=== PATIENT | male | born 1935 | race Caucasian/White ===

== ENCOUNTER 2017-02-01 02:24 | Inpatient (IN) ==
--- NOTE | 2017-01-31 09:56 | EKG Report ---
Test Performed on : 01/31/2017 09:06:31 AM Test Reason : surgery Blood Pressure : / mmHG Vent. Rate : 056 BPM Atrial Rate : 056 BPM P-R Int : 162 ms QRS Dur : 090 ms QT Int : 376 ms P-R-T Axes : 029 -41 050 degrees QTc Int : 362 ms Sinus bradycardia. Left axis deviation Low voltage QRS Abnormal ECG No previous ECGs available Confirmed by Aurora Shin MD ([id number]) on 02/01/2017 6:03:25 AM
[2017-01-31 10:24] LABS: BASO% 0.2 % (0.0-0.8); EOS# 0.14 X1000 (0.0-0.7); EOS% 2.6 % (0.0-10.0); HEMATOCRIT 34.1 % (42.0-52.0); HEMOGLOBIN 11.3 g/dL (14.0-18.0); IMM GRAN# 0.02 X1000 (0.0-0.04); IMM GRAN% 0.4 % (0.0-0.5); LYMPH# 1.16 X1000 (1.2-3.4); LYMPH% 21.3 % (20.5-51.1); MANUAL DIFF NEEDED? NO; MCH 28.7 PG (27-31); MCHC 33.1 g/dL (33-37); MCV 86.5 FL (81-99); MONO# 0.65 X1000 (0.11-0.59); MONO% 11.9 % (1.7-9.3); MPV 9.2 FL (7.4-10.4); NEUT% 63.6 % (42.2-75.2); PLT 247 X1000 (130-400); RBC 3.94 XMIL (4.7-6.1)
[2017-01-31 10:26] LABS: BILIRUBIN URINE NEGATIVE (NEGATIVE); BLOOD URINE NEGATIVE (NEGATIVE); COLOR YELLOW; GLUCOSE URINE 70 mg/dL (NEGATIVE); LEUKOCYTES URINE NEGATIVE (NEGATIVE); NITRITE URINE NEGATIVE (NEGATIVE); PH URINE 5.5; PROTEIN URINE NEGATIVE (NEGATIVE); SP GRAVITY URINE 1.008; TURBIDITY URINE CLEAR (CLEAR); URINE MICRO REVIEW NEEDED? NO; URINE SOURCE CLEAN CATCH; UROBILINOGEN URINE NORMAL (NORMAL)
[2017-01-31 10:27] LABS: UR EPITHELIAL CELLS <10 /HPF (<10); URINE BACTERIA NEGATIVE /HPF; URINE RBC <10 /HPF (<10); URINE WBC <10 /HPF (<10)
[2017-01-31 11:09] LABS: CALCIUM 10.2 mg/dL (8.8-10.2); POTASSIUM 5.4 mmol/L (3.5-5.1)
[2017-01-31 21:52] LABS: INR 0.97; PROTIME 10.2 Seconds (9.2-11.7); PTT 29.2 Seconds (22.0-36.0)
[2017-02-01] MEDS ORDERED: MORPHINE IV PRN (06:53)
[2017-02-01] MEDS ORDERED: PEPCID ONE (08:22)
[2017-02-01] MEDS ORDERED: COLACE ONE (08:22)
[2017-02-01] MEDS ORDERED: LYRICA ONE (08:22)
[2017-02-01] MEDS ORDERED: REGLAN ONE (08:22)
[2017-02-01] MEDS ORDERED: CELEBREX ONE (08:22)
[2017-02-01] MEDS ORDERED: KEFZOL 1 GM/D5W 1 GM/50 ML IVPB ONE (08:22)
[2017-02-01] MEDS ORDERED: LR 1,000 ML ONE (08:23)
[2017-02-01] MEDS ORDERED: DIPRIVAN 1% ONE (09:58)
[2017-02-01] MEDS ORDERED: ROBINUL ONE ×2 (10:00→11:03)
[2017-02-01] MEDS ORDERED: XYLOCAINE-MPF 2% ONE (10:00)
[2017-02-01] MEDS ORDERED: QUELICIN (DOSE) ONE (10:00)
[2017-02-01] MEDS ORDERED: TORADOL ONE (10:03)
[2017-02-01] MEDS ORDERED: DURAMORPH ONE (10:03)
[2017-02-01] MEDS ORDERED: MARCAINE 0.25% PF/EPI 1:200,000 ONE (10:04)
[2017-02-01] MEDS ORDERED: SODIUM CHLORIDE 0.9% ONE (10:04)
[2017-02-01] MEDS ORDERED: CYKLOKAPRON 1,000 MG/NS 1,000 MG/100 ML IVPB ONE (10:04)
[2017-02-01] MEDS ORDERED: EXPAREL 1.3% ONE (10:05)
[2017-02-01] MEDS ORDERED: NEOSPORIN G.U. IRRIGANT ONE (10:05)
[2017-02-01] MEDS ORDERED: FENTANYL ONE (10:56)
[2017-02-01] MEDS ORDERED: OFIRMEV 1000 MG/ISOTONIC SOLN 1,000 MG/100 ML BOTTLE ONE (11:03)
[2017-02-01] MEDS ORDERED: ZOFRAN ONE (11:03)
[2017-02-01] MEDS ORDERED: NEOSTIGMINE ONE (11:03)
[2017-02-01] MEDS ORDERED: EPHEDRINE ONE (11:22)
[2017-02-01 11:31] LABS: URINE MICRO REVIEW NEEDED? NO; URINE SOURCE CATH
[2017-02-01 11:34] LABS: BILIRUBIN URINE NEGATIVE (NEGATIVE); BLOOD URINE TRACE (NEGATIVE); COLOR YELLOW; GLUCOSE URINE TRACE mg/dL (NEGATIVE); LEUKOCYTES URINE NEGATIVE (NEGATIVE); NITRITE URINE NEGATIVE (NEGATIVE); PH URINE 6.5; PROTEIN URINE NEGATIVE (NEGATIVE); TURBIDITY URINE CLEAR (CLEAR); UR EPITHELIAL CELLS <10 /HPF (<10); URINE BACTERIA NEGATIVE /HPF; URINE WBC <10 /HPF (<10); UROBILINOGEN URINE NORMAL (NORMAL)
[2017-02-01] MEDS ORDERED: SODIUM CHLORIDE 0.9% 10 ML ONE (12:20)
[2017-02-01] MEDS ORDERED: NEO-SYNEPHRINE ONE (12:20)
[2017-02-01] MEDS ORDERED: MORPHINE ONE (12:58)
[2017-02-01] MEDS ORDERED: NS 1,000 ML ONE (12:58)
[2017-02-01] MEDS: MORPHINE ONE (13:12)
[2017-02-01] MEDS: NS 1,000 ML IV SCH (13:40)
--- NOTE | 2017-02-01 13:48 | OPERATIVE NOTE ---
PROCEDURE DATE: 02/01/2017 PREOPERATIVE DIAGNOSIS: Degenerative joint disease, right hip. POSTOPERATIVE DIAGNOSIS: Degenerative joint disease, right hip. PROCEDURE PERFORMED: Right total hip replacement anterior approach. SURGEON: Alice Anderson MD. PC ANALYST: Nick Duran. ANESTHESIA: General. COMPLICATION: None. PROCEDURE IN DETAIL: 81-year-old male presents for right total hip replacement. Risks, benefits, and no guarantees were discussed, and he is willing to proceed. He was taken to the operating room and satisfactory anesthesia obtained. He was transferred to the Latanya table and the right hip prepped and draped in usual sterile fashion. A time-out was taken confirm operative site, procedure, and patient. The right hip was approached anteriorly with a 10 cm incision starting 1 cm distal and lateral to the anterior superior iliac spine. Dissection was carried down through the skin and the fascia of the tensor fascia margo split in line with the incision. Blunt dissection along the inner membrane of tensor fascia was undertaken on down to the anterior hip capsule. The Cobra retractor was placed over the superior and inferior neck of the femoral neck in the capsule incised. The femoral neck was exposed and a femoral neck osteotomy made roughly 10 mm above the lesser trochanter. The femoral head was removed and sequential reaming of the acetabulum undertaken up to a size 55 reamer. A [place] DuoFix COPELAND coated acetabular shell, size 56 outer diameter was then impacted in the acetabulum under fluoroscopic guidance in roughly 45 degrees of abduction and 10-15 degrees of anteversion. This was noted to have good press-fit fixation. An additional 25 length screw was placed in the cup and a 36 inner diameter 0 degree polyethylene liner impacted in the cup. Liner cup and cup bone interface were checked and noted to be stable. The Latanya table was used to extend the hip and externally rotate the hip to facilitate broaching of the proximal femur. Sequential broaching of the femur was undertaken up to a size 15 Corail stem. This had good axial and rotational stability. An 8.5 neck length with the stem produced good mandaeism of leg length under fluoroscopic guidance making up for mild shortening of the hip. Good stability was noted. The trial stem was removed and a standard neck size 15 Corail stem impacted in the proximal femur with secure fixation. A 36 outer diameter ceramic 8.5 neck length head was impacted on this and the hip reduced. The C-arm was used to verify accurate component position and fixation. Good mandaeism of leg length was achieved. No anterior instability of the hip was noted through 75 degrees of extension and roughly 60-70 degrees of external rotation without any instability. The wound was copiously irrigated with irrigant. It was injected with Exparel for pain management and a Hemovac drain placed. The wound was closed over the drain with a running #1 Vicryl in the tensor fascia, 2-0 Vicryl in the subcutaneous, and skin schuyler on the skin edges. Sterile dressings completed the closure and the patient was recovered from anesthesia and transferred to the recovery room in stable condition. No intraoperative complications were noted. Instrument count and sponge count was correct at the time of closure. cc: Dylan Anderson MD
[2017-02-01] MEDS ORDERED: PNEUMOVAX 23 IM ONE (14:15)
--- NOTE | 2017-02-01 16:37 | PROGRESS NOTE ---
DATE: 02/01/2017 Mr. Dubon seen today status post total hip replacement. Presently, he has no complaints. He is afebrile with stable vital signs. The incision and bandage are clean and dry. He is motor and sensory intact. At the present time, he is stable. cc: Dylan Anderson MD
[2017-02-01] MEDS: NORCO-10 PO PRN ×2 (16:46→21:37)
[2017-02-01] MEDS: GLUCOPHAGE PO SCH (16:50)
[2017-02-01] MEDS: CELEBREX PO SCH (16:53)
[2017-02-01] MEDS: GLUCOTROL XL PO SCH ×2 (16:54→21:38)
[2017-02-01] MEDS: PRINIVIL PO SCH (16:54)
[2017-02-01] MEDS: COLACE PO SCH ×2 (16:54→21:38)
[2017-02-01] MEDS: KEFZOL 1 GM/D5W 1 GM/50 ML IVPB IV SCH (17:00)
[2017-02-01] MEDS ORDERED: HUMULIN R SUBQ ONE (19:02)
[2017-02-01] MEDS: ZOCOR PO SCH (21:37)
[2017-02-01] MEDS: PERIDEX MT SCH (21:38)
[2017-02-01] MEDS: HUMULIN R SUBQ SCH (21:38)
[2017-02-01] MEDS ORDERED: HALL'S COUGH LOZENGE MT PRN (23:07)
[2017-02-02] MEDS: KEFZOL 1 GM/D5W 1 GM/50 ML IVPB IV SCH (02:46)
[2017-02-02] MEDS: NS 1,000 ML IV SCH ×2 (02:47→17:19)
[2017-02-02 06:03] LABS: HEMATOCRIT 21.5 % (42.0-52.0); HEMOGLOBIN 7.2 g/dL (14.0-18.0)
--- NOTE | 2017-02-02 06:04 | CONSULTATION ---
DATE OF CONSULTATION: 02/02/2017 PRIMARY CARE PROVIDER: Dr. Dobson. DATE AND TIME OF CONSULTATION: On 02/02/2017 at 0200. REASON FOR CONSULTATION: Assistance with medical management. HISTORY OF PRESENT ILLNESS: Mr. Dubon is an 81-year-old, male who was admitted to the hospital yesterday and underwent surgery yesterday morning with Dr. Anderson for a right total hip replacement secondary to degenerative joint disease of his right hip. Initially , the patient was having controlled fingerstick blood sugars, though since surgery, his blood glucose levels have been elevated with the highest being 422. Dr. Anderson was notified of this and he did consult us for assistance with management in controlling his blood glucose levels. The patient, at this time, is resting comfortably in the bed. His pain is controlled. He, as well as his family member at bedside, report that he got up a few hours after surgery today and did ambulate with a walker. The patient did tolerate this well. He denies any other symptoms at this time. He denies any dizziness, lightheadedness, headache, chest pain, shortness of breath , or cough, He denies any abdominal pain, nausea, vomiting, or diarrhea. He reports that his last bowel movement was just prior to his arrival to the hospital. He denies any hematochezia or melena. He denies any dysuria or urinary frequency. He also denies any fever, body aches, or chills. Other than his reported pain in his right hip, he denies any other pain, numbness, tingling , or swelling in extremities. REVIEW OF SYSTEMS: A 12 point review of systems was conducted with the patient. All were negative except for pertinent positives mentioned above in the HPI. PAST MEDICAL HISTORY: 1. Diabetes mellitus type 2. 2. Hypertension. 3. History of a vascular stent placement. The patient reports that he has had a right carotid stent as well as a stent placed in his right leg. 4. Insomnia. 5. Gastroesophageal reflux disease. 6. Anxiety. 7. Previous history of gastrointestinal bleeding. 8. There is a questionable history of possible chronic kidney disease. 9. Arthritis. PAST SURGICAL HISTORY: 1. Left inguinal hernia repair. 2. Placement of right carotid stent as well as a stent in his right leg. 3. He has had a right knee arthroscopy. 4. He is status postop a right total hip replacement. SOCIAL HISTORY: The patient is a former smoker. He smoked for approximately 30 years. During this time, he initially did smoke cigarettes, though converted to cigars and eventually a pipe, though quit smoking in 2000. He denies any alcohol or illicit drug use. He currently lives at home with his . FAMILY HISTORY: Positive for his mother having a history of diabetes mellitus. He reported that he did not know of his father having any medical problems, though he does have 12 brothers and sisters for which some of them have problems with diabetes as well. ALLERGIES: Patient reports an allergy to Plavix, stating that it had caused him to have diarrhea. HOME MEDICATIONS: 1. Aspirin 81 mg p.o. daily. 2. Glipizide 10 mg p.o. b.i.d. 3. Lisinopril 20 mg p.o. daily. 4. Metformin 500 mg p.o. b.i.d. 5. Simvastatin 20 mg p.o. at bedtime. DIAGNOSTIC DATA/LABORATORY RESULTS: White blood cell count 5.4, hemoglobin 11.3 , hematocrit 34.1, platelet count is 247,000. PT 10.2, INR 0.97, PTT 29.2. Sodium 137, potassium 5.4, chloride 100, bicarb 26, BUN 26, creatinine 1.5, with a GFR of 45, glucose 109, calcium is 10.2. Urinalysis did show trace ketones, trace blood, and 10-20 red blood cells. It was negative for nitrites, leukocytes, white blood cells, or bacteria. EKG performed on January 31 showed sinus bradycardia with a left axis deviation at a rate of 56 with a QTc of 362. PHYSICAL EXAMINATION: Vital Signs: Temperature 98.6 degrees, heart rate 60, respirations 18, blood pressure 112/50, oxygen saturation is 98% on room air. General: Mr. Dubon is a very pleasant, 81-year-old, male who was resting comfortably in the inpatient bed. He was in no acute distress. He was awake, alert, and able to answer all questions appropriately. HEENT: Head is atraumatic, normocephalic. Pupils are equal, round, reactive to light, were 3 mm bilaterally and brisk. Oral mucosa is moist. Oropharynx is clear. Neck: Supple. Trachea midline. The patient did have a right carotid bruit noted upon auscultation, though he does have a history of a stent placement on the right. Cardiovascular: Patient has normal S1, S2. No murmurs, gallops, or rubs appreciated, with a regular rate and rhythm. Pulmonary: Patient has symmetrical chest expansion bilaterally. Lung sounds are clear to auscultation in bilateral full lung lu. Abdomen: Soft, nontender, nondistended. Bowel sounds are present in all 4 quadrants, normoactive. Extremities: No cyanosis, clubbing, or edema noted. Pulse, motor, and sensory are intact in all extremities. Neurological: The patient is alert and oriented x4. Cranial nerves 2-12 are grossly intact. ASSESSMENT AND PLAN: 1. Status post right total hip replacement secondary to degenerative joint disease. We will refer to Dr. Anderson for management of this. 2. Diabetes mellitus type 2. At this time, we have also, in addition to his home medications, placed him on a sliding scale insulin. We will closely monitor his fingerstick blood sugars. After surgery, his fingerstick blood sugar did get to as high as 422. After receiving his dose of insulin at 2100, his most recent glucose check was 147. We will continue to monitor. 3. Hypertension. We will continue his lisinopril. 4. Hyperlipidemia. We will continue his Zocor. 5. Acute kidney injury. The patient's creatinine is elevated at 1.5, BUN is 26 , with a GFR of 45. The patient's does not have any recent labs other than 2013 for which during that admission, he did have elevated creatinine. We are uncertain at this time if this is of chronic disease. We will continue with gentle fluid resuscitation with normal saline at 85 mL per hour. We will avoid nephrotoxic medications and renally dose as necessary. We will continue to monitor. 6. Deep vein thrombosis prophylaxis is currently being provided with Xarelto 10 mg by mouth daily. The patient is on the surgical floor. Orthopedic care at this time is being managed by Dr. Anderson. We will follow his recommendations for this. He is on a diabetic diet. We will repeat a BMP, and hemoglobin and hematocrit in the morning. Further orders and recommendations pending hospital course, diagnostic studies, and physician evaluation. We would like to thank Dr. Anderson for this consult. Dictated by GILL Lu for Irwin White MD cc: MD Dylan Viera MD MTDD
[2017-02-02 06:36] LABS: HEMOGLOBIN A1C 8.1 % (4.8-6.0)
[2017-02-02 06:38] LABS: CALCIUM 7.8 mg/dL (8.8-10.2); POTASSIUM 4.5 mmol/L (3.5-5.1)
[2017-02-02] MEDS: NORCO-10 PO PRN ×3 (07:06→19:15)
[2017-02-02] MEDS: XARELTO PO SCH (07:06)
[2017-02-02] MEDS: HUMULIN R SUBQ SCH ×4 (07:07→21:00)
--- NOTE | 2017-02-02 08:08 | PROGRESS NOTE ---
DATE: 02/02/2017 Mr. Dubon was seen today, postop day 1 of an anterior hip replacement. He is awake and alert. He did have a drop in his hematocrit down to 21. We will plan on giving him 1 unit of transfusion today. He also had an increase in his blood sugars up to 400 and we have consulted the hospitalist to manage that. At the present time, he is afebrile with stable vital signs. The incision is clean and dry. There are no signs of infection or DVT. We will keep him in the hospital today and consider discharge home tomorrow, provided his blood sugar and hematocrit are stable. cc: MD Main Andres MD
[2017-02-02] MEDS: PERIDEX MT SCH ×2 (08:19→22:17)
[2017-02-02] MEDS: GLUCOPHAGE PO SCH ×2 (08:20→17:03)
[2017-02-02] MEDS: COLACE PO SCH ×2 (08:20→22:17)
[2017-02-02] MEDS: CELEBREX PO SCH (08:20)
[2017-02-02] MEDS: GLUCOTROL XL PO SCH (08:20)
[2017-02-02] MEDS: PRINIVIL PO SCH (08:22)
--- NOTE | 2017-02-02 15:20 | PROGRESS NOTE ---
DATE: 02/02/2017 SUBJECTIVE: Today Mr. Dubon refers to be doing fine. He is postop day 1. He has been evaluated by both orthopedics and participated in physical therapy today. OBJECTIVE: Vital signs: Blood pressure is 114/56, pulse is 78, respirations 20, temperature 98.6 degrees. General exam: Mr. Dubon is an 81-year-old male. He is in bed, not seemingly distressed. HEENT: Mucosa is pink and moist. Anicteric. Acyanotic. Neck: Supple. Chest: Clear. Cardiovascular: Regular rate and rhythm. Abdomen: Soft, nontender. Extremities: No pedal edema. The right hip has a Band-Aid over the recent surgery. 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 There is no focal neurological deficit. LABORATORY DATA: Hemoglobin is up to 8.1 after 1 unit of PRBC transfusion. Creatinine is 1.4. ASSESSMENT: 1. Status post right total hip replacement due to degenerative joint disease. Today is day one postoperatively. 2. Diabetes mellitus. Patient A1c was 8.1. This morning though he was running a little hypoglycemic, so I withheld the insulin if it continues and the glipizide at least for now until the glucose is normalized to prevent any hypoglycemic event. 3. Chronic kidney disease stage III-A noted. 4. Anemia likely secondary to acute blood loss. The patient has been transfused 1 unit of packed red blood cells. PLAN: So, in general, Mr. Dubon is status post a right hip total hemiarthroplasty. He is tolerating physical therapy. He has voiced his wish to go home with home health. He does not want to go to rehab. If his hemoglobin and hematocrit remain stable tomorrow, we might be able to discharge him with home health physical therapy. cc: Mani Gilliam MD
[2017-02-02] MEDS: MORPHINE ONE (18:23)
[2017-02-02] MEDS ORDERED: XANAX PO SCH (22:00)
[2017-02-02] MEDS: ZOCOR PO SCH (22:17)
[2017-02-03] MEDS: NS 1,000 ML IV SCH (02:36)
[2017-02-03 05:51] LABS: HEMATOCRIT 24.3 % (42.0-52.0); HEMOGLOBIN 8.2 g/dL (14.0-18.0)
[2017-02-03 06:29] LABS: CALCIUM 8.5 mg/dL (8.8-10.2); POTASSIUM 5.4 mmol/L (3.5-5.1)
[2017-02-03] MEDS: NORCO-10 PO PRN (06:40)
[2017-02-03] MEDS: XARELTO PO SCH (06:40)
[2017-02-03] MEDS: HUMULIN R SUBQ SCH ×2 (06:41→11:42)
[2017-02-03] MEDS: PERIDEX MT SCH (08:31)
[2017-02-03] MEDS: PRINIVIL PO SCH (08:31)
[2017-02-03] MEDS: COLACE PO SCH (08:31)
[2017-02-03] MEDS: GLUCOPHAGE PO SCH (08:31)
[2017-02-03 12:20] VITALS: BP 148/63
--- NOTE | 2017-02-03 13:41 | PROGRESS NOTE ---
DATE: 02/03/2017 SUBJECTIVE: This patient states that he is doing fine. He is postoperative day #2. Orthopedic surgery evaluated this patient and he is going home today with home health and physical therapy. OBJECTIVE: Vital Signs: Temperature 98.4 degrees, pulse 83, respiratory rate 20, blood pressure 148/63, oxygen saturation 97% on room air. HEENT: Head normocephalic. No trauma. PERRLA. Neck: Supple. No JVD. No masses. Central trachea. Chest: Clear to auscultation. No wheezing. No rales. Abdomen: Soft, nontender, nondistended. No hepatosplenomegaly. Extremities: Right hip is covered with a dressing. I do not see any complication. Neurological examination: The patient is alert and oriented x3. No focal deficits. LABORATORY: Hemoglobin 8.2, hematocrit 24.3. Sodium 126, potassium 5.4, chloride 92, bicarbonate 24, BUN 21, creatinine 1.4, glucose 190, calcium 8.5. ASSESSMENT AND PLAN: 1. Status post right total hip replacement due to degenerative joint disease, postoperative day #2. He is doing fine. He will go home with physical therapy and home health. 2. Type 2 diabetes. The patient has a hemoglobin A1c of 8.1. Continue with the same management at home. He will continue with his home medications. 3. Chronic kidney disease stage III noted. 4. Hyponatremia. I checked back his lab works and I have result of sodium in 2013 that was 128. It looks like this is chronic. I talked to the family and with the patient, and they will go to his primary care doctor for workup. 5. Anemia, likely secondary to acute blood loss. Patient has been transfused with 1 unit of packed red blood cells. Hemoglobin and hematocrit stable. Overall, this patient is doing good. He will go home with home health and physical therapy. He will follow up with his primary doctor. cc: Bulmaro Landon MD
--- NOTE | 2017-02-03 14:03 | DISCHARGE SUMMARY ---
ADMISSION DATE: 02/01/2017 DISCHARGE DATE: 02/03/2017 DATE OF ADMISSION: 02/01/2017. DATE OF DISCHARGE: 02/03/2017. ADMITTING HISTORIES: DJD of the right hip. ADDITIONAL HISTORY: 1. Diabetes. 2. Hypertension. DISCHARGE DIAGNOSES: 1. Diabetes. 2. Hypertension. 3. Acute blood loss anemia. HOSPITAL COURSE: An 81-year-old male with DJD about the right hip was admitted to the hospital for a hip replacement. He underwent an anterior hip replacement without complication. Postoperatively, day 1 he did have a drop in his hematocrit down to 22 due to acute blood loss anemia. He received 1 unit of packed red blood cells for this. He also had an increase in his blood sugar and the hospitalist was consulted for management of this. He was kept overnight and presently, he is afebrile with stable vital signs. He is ambulating well. The incision is clean and dry. There is no signs of infection or DVT. His blood sugars been controlled and his hematocrit is up to 24 and he is asymptomatic. He is discharged home today for outpatient followup. He is to receive home therapy. We will see him back in 10 to 12 days for suture removal. He can return in the interim for any worsening signs or symptoms. DISCHARGE MEDICATIONS: Include: 1. Renick 7.5, 1-2 every 4-6 hours p.r.n. pain. 2. Xarelto 10 mg daily for 21 days. 3. Lisinopril daily. 4. Metformin per his home dose daily. 5. Glipizide per his home dose. 6. Mobic 50 mg daily. 7. Simvastatin daily. cc: MD Bulmaro Andres MD
== END 2017-02-03 11:30 | disposition home health service (06) ==
LOC: SURHOLD 02:24 → 4N 10:59
PROVIDERS: ADMIT Internal Medicine; ATTEND Orthopaedic Surgery Adult Reconstructive Orthopaedic Surgery